=== PATIENT | male | born 1960 | race Caucasian/White ===

== ENCOUNTER 2017-11-07 10:24 | Observation (INO) | payer OTHER, BC ==
[2017-10-13 11:41] VITALS: BMI 23.0
--- NOTE | 2017-10-13 12:14 | PAT Medication Instructions ---
Service Date Oct 13, 2017. Current Home Medication List Albuterol Hfa (Ventolin Hfa), 2-4 PUFFS INH Q6H PRN for Shortness of Breath Atenolol (Tenormin), 12.5 MG PO QAM Escitalopram (Lexapro), 10 MG PO QAM Fluticasone Prop/Salmeterol (Advair Diskus 250/50 60 Dose), 1 PUFF INH BID PRN for Shortness of Breath Ibuprofen (Motrin), 800 MG PO TID PRN for Pain Omeprazole (Prilosec), 40 MG PO QAM Tiotropium [place]-Olodaterol (Stiolto Respimat 2.5-2.5 Mcg/Act), 2 PUFFS INH DAILY Medication Instructions For Your Scheduled Surgery - Hold the following medications the morning of surgery: Ibuprofen (Motrin), 800 MG PO TID PRN for Pain (otherwise okay to continue per surgeon) - Take the following medications the morning of surgery with a sip of water OTHERWISE NOTHING TO EAT OR DRINK AFTER MIDNIGHT: Atenolol (Tenormin), 12.5 MG PO QAM Omeprazole (Prilosec), 40 MG PO QAM Escitalopram (Lexapro), 10 MG PO QAM Tiotropium [place]-Olodaterol (Stiolto Respimat 2.5-2.5 Mcg/Act), 2 PUFFS INH DAILY Albuterol Hfa (Ventolin Hfa), 2-4 PUFFS INH Q6H PRN for Shortness of Breath ( use if needed; BRING TO HOSPITAL) Fluticasone Prop/Salmeterol (Advair Diskus 250/50 60 Dose), 1 PUFF INH BID PRN for Shortness of Breath - Take the following medications as scheduled the night before surgery: Tiotropium [place]rey-Olodaterol (Stiolto Respimat 2.5-2.5 Mcg/Act), 2 PUFFS INH DAILY Albuterol Hfa (Ventolin Hfa), 2-4 PUFFS INH Q6H PRN for Shortness of Breath Fluticasone Prop/Salmeterol (Advair Diskus 250/50 60 Dose), 1 PUFF INH BID PRN for Shortness of Breath If you have any questions please call us at [phone] or [phone] or [phone]
[2017-10-13 13:35] LABS: BASO % 0.4 %; BASO ABS # 0.02 K/uL (0-0.2); EOS % 3.1 %; EOS ABS # 0.15 K/uL (0-0.5); HEMATOCRIT 44.2 % (42-52); HEMOGLOBIN 15.5 g/dL (14.0-18.0); IG# 0.01 K/uL (0.00-0.02); LYMPH % 28.9 %; MEAN CELL VOLUME 98.9 fL (80-100); MEAN CORPUSCULAR HEMOGLOBIN 34.7 pg (25-34); MEAN CORPUSCULAR HGB CONC 35.1 g/dl (32-36); MEAN PLATELET VOLUME 10.5 fL (7.4-10.4); MONO ABS # 0.34 K/uL (0.11-0.59); NEUT % 60.4 %; NEUT ABS # 2.92 K/uL (1.4-6.5); PLATELET COUNT 200 K/uL (130-400); RED CELL DISTRIBUTION WIDTH CV 13.4 % (11.5-14.5); RED CELL DISTRIBUTION WIDTH SD 48.2 fL (36.4-46.3); WHITE BLOOD COUNT 4.84 K/uL (4.8-10.8)
[2017-10-13 15:21] LABS: CALCIUM 9.4 mg/dl (8.5-10.1); CREATININE 0.83 mg/dl (0.60-1.40)
[~2017-11-07] VITALS: Ht 180.3 cm; Wt 73.7 kg
[2017-11-07] VITALS (11 sets, daily range): BP systolic 119–164; BP diastolic 65–84; PULSE 70–98; TEMP 36.5–37.3; O2SAT 94–99; Ht 180.3 cm; Wt 73.7 kg
[~2017-11-07 10:24] MED LIST: ADVIN25/60 INH; ATEN-173 PO; ATROPINE SULFATE 0.1 MG/ML 5ML SYR IV PRN; BACITRACIN 50000 UNIT VIAL ONE; CEFAZOLIN 1000MG IV PUSH 5 ML IV SCH; ESCI10TA17 PO; EpHEDrine SULFATE INJ 50 MG/ML AMP IV PRN; FENTANYL CITRATE INJ 50 MCG/1 ML 2 ML VIAL IV PRN; FENTANYL CITRATE INJ 50 MCG/1 ML 2 ML VIAL ONE; HYDROmorphone INJ 1 MG/ML SYR IV PRN; IBUP-1428 PO; LACTATED RINGER'S 1000ML 1,000 ML IV SCH; MIDAZOLAM HCL 1 MG/ML 2ML VIAL ONE; OMEP40CA41 PO; ONDANSETRON INJ 2 MG/ML 2 ML VIAL IV PRN; SODIUM CHLORIDE 0.9% PF 50 ML VIAL ONE; TIOT1AER INH; VNTHFA/IN INH
--- NOTE | 2017-11-07 11:44 | History & Physical Bridge Note ---
H&P Re-Evaluation Bridge Note: I have examined the patient, reviewed the History & Physical and in the interval since the performance of the History & Physical I have noted the following changes of clinical significance: No changes noted
--- NOTE | 2017-11-07 11:46 | History and Physical ---
History & Physical Date Nov 07, 2017. Chief Complaint Neck and arm pain History of Present Illness The patient is a 56 year old male with complaints of neck and arm pain Additional History Hepatic Disease: No Endocrine Disorder: No Kidney Disease: No Hypertension: Yes Heart Disease: No Bleeding Tendencies: No Infectious Diseases: No Allergies Coded Allergies: No Known Allergies (Verified , 11/07/17) Home Medications Scheduled Atenolol (Tenormin), 12.5 MG PO QAM Escitalopram (Lexapro), 10 MG PO QAM Omeprazole (Prilosec), 40 MG PO QAM Tiotropium [place]-Olodaterol (Stiolto Respimat 2.5-2.5 Mcg/Act), 2 PUFFS INH DAILY Scheduled PRN Albuterol Hfa (Ventolin Hfa), 2-4 PUFFS INH Q6H PRN for Shortness of Breath Fluticasone Prop/Salmeterol (Advair Diskus 250/50 60 Dose), 1 PUFF INH BID PRN for Shortness of Breath Ibuprofen (Motrin), 800 MG PO TID PRN for Pain Physical Examination Skin: warm/dry, no rash Eyes: normal inspection, EOMI, sclerae normal ENT: normal ENT inspection, pharynx normal Head: normocephalic, atraumatic Neck: supple, no adenopathy, trachea midline Respiratory/Chest: lungs clear, normal breath sounds, no respiratory distress Cardiovascular: regular rate, rhythm, no edema, no murmur Abdomen / GI: normal bowel sounds, non tender Back: normal inspection Extremities: normal inspection, normal range of motion Neurologic/Psych: no motor/sensory deficits, alert, normal reflexes, oriented x 3 Diagnosis Cervical spinal stenosis Plan of Treatment ACDF C3 4 C4 5, anterior cervical discectomy and fusion.
[2017-11-07] MEDS ORDERED: BACITRACIN 50000 UNIT VIAL ONE (12:09)
[2017-11-07] MEDS ORDERED: FENTANYL CITRATE INJ 50 MCG/1 ML 2 ML VIAL ONE ×4 (12:23→13:50)
[2017-11-07] MEDS ORDERED: HYDROmorphone INJ 2 MG/ML SYR/VIAL ONE ×3 (12:41→13:50)
[2017-11-07] MEDS ORDERED: LIDOCAINE HCL 2% 2 ML VIAL (20MG/ML) ONE (13:04)
[2017-11-07] MEDS ORDERED: PROPOFOL IV EMULSION 10 MG/ML 20 ML VIAL IV ONE (13:04)
[2017-11-07] MEDS ORDERED: PHENYLEPHRINE 100MCG/ML 5ML SYR ONE ×2 (13:04→13:55)
[2017-11-07] MEDS ORDERED: ONDANSETRON INJ 2 MG/ML 2 ML VIAL ONE ×2 (13:04→13:55)
[2017-11-07] MEDS ORDERED: DEXAMETHASONE SOD INJ 4 MG/ML VIAL ONE (13:04)
[2017-11-07] MEDS ORDERED: FLOSEAL HEMOSTATIC MATRIX 5ML TOP ONE (13:30)
--- NOTE | 2017-11-07 13:31 | [facility] Operative Report ---
Operative Report Operative Date Nov 07, 2017. Pre-Operative Diagnosis Cervical spinal stenosis Post-Operative Diagnosis Same as preoperative diagnosis Procedure(s) Performed #1 anterior cervical discectomy by foraminotomies C3 4 C4 5. #2 anterior cervical arthrodesis C3 4 C4 5. #3 placement of cortical allograft filled with DBM 8 mm in height C3 4 C4 5. #4 application of 5 complete and screws C3 [address] Gerhard Willis Commercial Real Estate Attorney Surgeon(s) Emerald Hunt PA-C Estimated Blood Loss 50mL Findings Severe spinal stenosis Specimens None, Per Surgeon Description of Procedure Patient was met with him preoperatively case discussed all questions addressed. After informed consent obtained patient was taken to operative suite intubation places supine position. With a [place] headholder. All bony prominences were well padded as inspected to ensure no external pressure placed upon them. This point the anterior cervical spine was prepped and draped in the normal sterile fashion. With the assistance of fluoroscopy identified the C4 vertebral body. A transverse incision was placed along the right anterior aspect of the cervical spine overlying this region. Sharp dissection with the assistance of bipolar electrocautery was performed onto exposing the anterior cervical spine from C3 to C5. Self retaining retractor was placed. Then performed a complete discectomy of C3 4 out to the uncovertebral joints bilaterally and removed all posterior inner fibrous longitudinal ligament and performed bilateral foraminal release. [place] distracting pins were utilized to assist us to visualization. End plate November to subcortical bleeding bone in the millimeter cortical autograft. DBM tapped in position. Distracting apparatus was removed and proceeded to C4 5. And complete discectomy performed up to the uncovertebral joints bilaterally. Removed all posterior inner fibrous longitudinal ligament and bilateral from was performed. Please produce a cortical bleeding bone. A 8 mm cortical autograft with DBM was then tapped in position. All distracting apparatus was removed and a follow-up screw was applied with the assistance of fluoroscopy. Incision was then copiously irrigated and explored to ensure there is no damage to surrounding structures and any bleeding. 10 round TAYLER drain inserted. Incision closed with 1 Vicryl in the fascia for Monocryl for final skin closure Steri-Strips tenderness dressings placed. She will continue stable condition. Please note Emerald Bowles was present throughout the entire procedure involved in patient positioning complex portions of the surgery for closure. I attest to the content of the Intraoperative Record and any orders documented therein. Any exceptions are noted below.
--- NOTE | 2017-11-07 13:41 | DIAGNOSTIC IMAGING REPORT ---
INTRAOPERATIVE RADIOGRAPHS CLINICAL HISTORY: C3-C5 spinal fusion. Fluoroscopy time: 11 seconds. FINDINGS: 2 spot fluoroscopic views of the cervical spine are presented. An endotracheal tube is in place. There is evidence of discectomy at C3-C4 and C4-C5 with anterior fusion at these levels. The orthopedic hardware appears intact. Anterior fusion hardware is also noted in the lower cervical spine. IMPRESSION: Intraoperative images from C3 -C5 spinal fusion as above. Electronically signed by: Rashid Pierson M.D. 11/07/2017 1:40 PM Dictated Date/Time: 11/07/2017 1:39 PM
--- NOTE | 2017-11-07 13:41 | DIAGNOSTIC IMAGING REPORT ---
INTRAOPERATIVE RADIOGRAPHS CLINICAL HISTORY: C3-C5 spinal fusion. Fluoroscopy time: 11 seconds. FINDINGS: 2 spot fluoroscopic views of the cervical spine are presented. An endotracheal tube is in place. There is evidence of discectomy at C3-C4 and C4-C5 with anterior fusion at these levels. The orthopedic hardware appears intact. Anterior fusion hardware is also noted in the lower cervical spine. IMPRESSION: Intraoperative images from C3 -C5 spinal fusion as above. Electronically signed by: aRshid Pierson M.D. 11/07/2017 1:40 PM Dictated Date/Time: 11/07/2017 1:39 PM
[2017-11-07] MEDS ORDERED: MEPERIDINE HCL 25 MG/ML CARP ONE (13:42)
[2017-11-07] MEDS ORDERED: DO NOT ADMINISTER PNEUMOCOCCAL VACCINE PRN (13:45)
[2017-11-07] MEDS ORDERED: LORAZEPAM 0.5 MG TAB PO PRN (13:45)
[2017-11-07] MEDS ORDERED: HYDROmorphone INJ 0.5 MG/0.5 ML SYR IV PRN (13:45)
[2017-11-07] MEDS ORDERED: DEXAMETHASONE INJ 8 MG in SYRINGE 0 ML IV PRN (13:45)
[2017-11-07] MEDS ORDERED: ONDANSETRON INJ 2 MG/ML 2 ML VIAL IV PRN (13:45)
[2017-11-07] MEDS ORDERED: DO NOT ADMINISTER FLU VACCINE PRN (13:45)
[2017-11-07] MEDS ORDERED: DiphenhydrAMINE HCL 50 MG/ML VIAL IV PRN (13:45)
[2017-11-07] MEDS ORDERED: NALOXONE HCL 0.4 MG/1 ML VIAL/CARP IV PRN (13:45)
[2017-11-07] MEDS ORDERED: MAGNESIUM HYDROXIDE SUSP 30 ML UDC PO PRN (13:45)
[2017-11-07] MEDS ORDERED: LORAZEPAM INJ 0.5 MG in SYRINGE 0.75 ML IV PRN (13:45)
[2017-11-07] MEDS ORDERED: RACEPINEPHRINE 2.25% NEBU SOLN 0.5 ML VIAL INH PRN (13:45)
[2017-11-07] MEDS ORDERED: ACETAMINOPHEN IV 1,000 MG in EMPTY BAG 0 ML IV PRN (13:45)
[2017-11-07] MEDS ORDERED: GLYCOPYRROLATE INJ 0.2 MG/ML VIAL ONE (13:55)
[2017-11-07] MEDS ORDERED: NEOSTIGMINE METHYLSULFATE 1 MG/ML 10ML VIAL ONE (13:55)
[2017-11-07] MEDS ORDERED: ESMOLOL HCL 10 MG/ML 10 ML VIAL ONE (13:55)
--- NOTE | 2017-11-07 14:40 | Anesthesiology Progress Note ---
Anesthesia Post Op Note Date & Time Nov 07, 2017 at 14:40 Vital Signs Pain Intensity: 5.0 Vital Signs Past 12 Hours Date Time Temp Pulse Resp B/P (MAP) Pulse Ox O2 Delivery O2 Flow Rate FiO2 11/07/17 14:25 83 14 146/86 93 Nasal Cannula 4 11/07/17 14:15 93 15 131/89 93 Nasal Cannula 4 11/07/17 14:05 92 14 146/86 94 Oxymask 10 11/07/17 13:55 92 18 133/87 95 Oxymask 10 11/07/17 13:45 36.4 94 17 121/78 92 Oxymask 10 11/07/17 10:42 37.3 70 16 164/75 99 Room Air Notes Mental Status: alert / awake / arousable, participated in evaluation Pt Amnestic to Procedure: Yes Nausea / Vomiting: adequately controlled Pain: adequately controlled, improving with treatment Airway Patency, RR, SpO2: stable & adequate BP & HR: stable & adequate Hydration State: stable & adequate Anesthetic Complications: no major complications apparent
[2017-11-07] MEDS: HYDROmorphone INJ 1 MG/ML SYR IV PRN ×2 (15:58→19:08)
[2017-11-07] MEDS ORDERED: IV FLUIDS COMPLETED PRN (16:00)
[2017-11-07] MEDS ORDERED: SCOPOLAMINE 1.5 MG TDSY TD SCH (16:00)
[2017-11-07] MEDS: LACTATED RINGER'S 1000ML 1,000 ML IV SCH (16:05)
[2017-11-07] MEDS: CHECK SCOPOLAMINE PATCH PLACEMENT SCH (16:08)
[2017-11-07] MEDS ORDERED: RXC5 PO (16:45)
--- NOTE | 2017-11-07 16:46 | Discharge Instructions ---
Discharge Instructions Date of Service Nov 07, 2017. Admission Reason for Admission: Cervical Spinal Stenosis Discharge Discharge Diagnosis / Problem: cervical stenosis Discharge Goals Goal(s): Improve function Activity Recommendations Activity Limitations: per Instructions/Follow-up section . Instructions / Follow-Up Instructions / Follow-Up ACTIVITY RECOMMENDATIONS: SELF CARE INSTRUCTIONS AFTER CERVICAL FUSIONS 1. No smoking. Smoking drastically decreases the chance of a solid fusion. 2. No bending, lifting more than 5 pounds, or twisting (roll like a log when turning in bed). 3. You may shower 3 days after surgery. Thoroughly dry wound. Do not soak in the tub. 4. Cervical collar: Must be worn at all times including sleeping. You may remove the brace only to bath, eat and if you are sitting in a recliner. 5. Please walk as much as you can for exercise. Gradually increase the distance that you walk as your endurance increases. SPECIAL CARE INSTRUCTIONS: VERY IMPORTANT TO READ AND REVIEW A. Do not take any anti-inflammatory medications (i.e. Indocin, Advil, Aspirin, Naprosyn, Aleve, Motrin, etc.) as these may inhibit the chance of a solid fusion. Tylenol is okay to take. B. Your surgical incision has been closed with a cosmetic suture under the skin that will dissolve in about 6 weeks. In 14 days, you can use a pair of clean scissors and cut the suture that is left outside of the skin at the ends of your incision. C. Complications are uncommon, but please contact us if you have any signs or symptoms of: 1. wound infection (fever higher than 102.5 degrees F, redness, separation of wound, drainage, or increasing pain from the incision) 2. blood clots in legs (pain, swelling, redness and warmth in legs) 3. urinary tract infection (fever higher than 102.5 degrees, burning upon urination or increased frequency of urination) 4. nerve problems (inability to walk on your toes or heels, numbness, loss of bowel or bladder control) 5. any other symptoms that concern you. D. Please call the office at if you have any concerns or questions about your operation or recovery. MANAGING PAIN AFTER SPINAL SURGERY 1. Narcotic medication is intended for short-term use and will be provided for surgical pain. Surgical pain usually lasts for a period of 4-6 weeks. Narcotic medication includes Percocet, Vicodin, Darvocet, Tylenol #3 or Lortab. 2. Longer-term pain is more appropriately treated with non-narcotic medication such as Tylenol ES. 3. Muscle spasm is not appropriately treated with narcotics. Muscle relaxers such as Soma, Flexeril or Skelaxin can be used along with Tylenol ES. 4. Remember that we all live with some "aches and pains". This is not unusual or uncommon after an injury or as we get older. 5. We will provide appropriate medication within the normal guidelines of their prescribed use. We will also be very cautious and aware of potential abuse and extended duration of patients' medication needs. 6. Please allow 2-3 days to process refills. Prescriptions will not be mailed but must be picked up at the office. FOLLOW UP VISIT: Keep your scheduled follow-up appointment. Any questions, please call the office at . Current Hospital Diet Patient's current hospital diet: Clear Liquid Diet Discharge Diet Recommended Diet: Regular Diet Procedures Procedures Performed: #1 anterior cervical discectomy by foraminotomies C3 4 C4 5. #2 anterior cervical arthrodesis C3 4 C4 5. #3 placement of cortical allograft filled with DBM 8 mm in height C3 4 C4 5. #4 application of 5 complete and screws C3 4 C4 5. Pending Studies Studies pending at discharge: no Medical Emergencies . Who to Call and When: Medical Emergencies: If at any time you feel your situation is an emergency, please call 911 immediately. . Non-Emergent Contact Non-Emergency issues call your: Primary Care Provider . "Provider Documentation" section prepared by Gerhard Willis. . VTE Core Measure Inpt VTE Proph given/why not?: Eulogio Cavanaugh, SCD's
[2017-11-07] MEDS ORDERED: NURSING VERBAL MED ORDER ONE (19:00)
[2017-11-07] MEDS: NICOTINE 21 MG/24 HR TDSY EXT SCH (19:41)
[2017-11-07] MEDS: CEFAZOLIN IV 1,000 MG in SYRINGE 0 ML IV SCH (20:19)
[2017-11-07] MEDS: DOCUSATE SODIUM 100 MG CAP PO SCH (20:19)
[2017-11-08] VITALS (8 sets, daily range): BP systolic 140–151; BP diastolic 73–90; PULSE 65–82; TEMP 36.5–36.8; O2SAT 94–98
[2017-11-08] MEDS: CHECK SCOPOLAMINE PATCH PLACEMENT SCH ×2 (00:15→08:00)
[2017-11-08] MEDS: OXYCODONE HCL IR 5 MG TAB (IMMEDIATE RELEASE) PO PRN ×3 (00:34→11:37)
[2017-11-08] MEDS: LACTATED RINGER'S 1000ML 1,000 ML IV SCH (02:21)
[2017-11-08] MEDS: HYDROmorphone INJ 1 MG/ML SYR IV PRN ×3 (02:21→09:27)
[2017-11-08] MEDS: CEFAZOLIN IV 1,000 MG in SYRINGE 0 ML IV SCH ×2 (04:28→11:36)
--- NOTE | 2017-11-08 07:32 | Anesthesiology Progress Note ---
Anesthesia Post Op Note Date & Time Nov 08, 2017 at 07:32 Vital Signs Pain Intensity: 7.0 Vital Signs Past 12 Hours Date Time Temp Pulse Resp B/P (MAP) Pulse Ox O2 Delivery O2 Flow Rate FiO2 11/08/17 06:15 36.8 65 16 143/84 94 Room Air 11/08/17 04:15 36.6 66 16 149/90 98 Nasal Cannula 2.0 Humidified Oxygen 11/08/17 03:26 70 16 94 Nasal Cannula 2.0 11/08/17 02:15 36.5 71 16 146/78 96 Nasal Cannula 2.0 Humidified Oxygen 11/08/17 00:15 36.5 71 16 140/73 94 Nasal Cannula 2.0 Humidified Oxygen 11/08/17 00:15 Nasal Cannula 2.0 Humidified Oxygen 11/07/17 23:07 83 16 96 Nasal Cannula 2.0 11/07/17 22:15 36.6 90 16 132/74 95 Nasal Cannula 2.0 Humidified Oxygen 11/07/17 20:29 86 16 96 Nasal Cannula 2.0 11/07/17 20:15 36.6 80 16 123/76 94 Nasal Cannula 2.0 Humidified Oxygen Notes Mental Status: alert / awake / arousable, participated in evaluation Pt Amnestic to Procedure: Yes Nausea / Vomiting: adequately controlled Pain: adequately controlled Airway Patency, RR, SpO2: stable & adequate BP & HR: stable & adequate Hydration State: stable & adequate Anesthetic Complications: no major complications apparent
[2017-11-08] MEDS: NICOTINE 21 MG/24 HR TDSY EXT SCH (09:29)
[2017-11-08] MEDS: DOCUSATE SODIUM 100 MG CAP PO SCH (09:29)
--- NOTE | 2017-11-08 12:45 | Discharge Summary ---
Orthopedic Discharge Summary Admission Date/Reason Nov 07, 2017 at 11:42 Cervical Spinal Stenosis. Discharge Date/Disposition Nov 08, 2017 Home Diagnosis Principal Diagnosis: Cervical spinal stenosis Admission Physical Exam As per Admitting History & Physical. Hospital Course Patient underwent anterior cervical discectomy and fusion tolerated this well as taken to the orthopedic floor postop. Postop day #10 swallowing well. No hoarseness. Arm symptoms improved. Surgical he was discharged home. Discharge orders and instructions finally chart for further review. Discharge Instructions Please refer to the electronic Patient Visit Report (Discharge Instructions) for additional information.
[2017-11-09] MEDS ORDERED: BISACODYL 10 MG SUPP PR PRN (06:00)
[2017-11-09] MEDS ORDERED: BISACODYL 5 MG TABEC PO PRN (06:00)
[2017-11-10] MEDS ORDERED: POLYETHYLENE (MIRALAX) 17 GM PACK PO SCH (09:00)
== END 2017-11-08 12:00 | disposition home or self-care (01) ==
LOC: C.ACU 10:24 → C.3E 11:42 → MERGE 11:45 → ENRESERV 14:38
PROVIDERS: ADMIT Orthopaedic Surgery Orthopaedic Surgery of the Spine; ATTEND Orthopaedic Surgery Orthopaedic Surgery of the Spine
DX: M48.02 Spinal stenosis, cervical region (principal); J44.9 Chronic obstructive pulmonary disease, unspecified; F17.200 Nicotine dependence, unspecified, uncomplicated; I25.10 Atherosclerotic heart disease of native coronary artery without angina pectoris; I10 Essential (primary) hypertension

== ENCOUNTER 2019-01-04 10:22 | Inpatient (IN) ==
--- NOTE | 2019-01-03 09:18 | Anesthesiology Consultation ---
Date of Service January 03, 2019 Assessment & Plan (1) Encounter for pre-operative examination: Chart Review Chart Review: Acceptable Risk for Surgery and Patient NOT seen in Pre Admission Testing Consults Requested none History Surgery Operation Date: 01/04/19 12:10 Proposed Procedures p Robotic Left Video Assisted Thoracoscopy with Left Upper Lobectomy and Mediastinal Lymphadenectomy - Luis Antonio Adrian MD, FACS Height/Weight Height: 5 ft 10.5 in Weight: 72.575 kg Allergies Allergy/AdvReac Type Severity Reaction Status Date / Time No Known Allergies Allergy Verified 01/03/19 07:26 Medications Home Medications Medication Instructions Recorded Confirmed Last Taken albuterol sulfate 1 puff INHALATION Q6H PRN 01/03/19 01/03/19 Unknown escitalopram oxalate [Lexapro] 10 mg PO QAM 01/03/19 01/03/19 Unknown metoprolol succinate 12.5 mg PO QAM 01/03/19 01/03/19 Unknown tiotropium-olodaterol [Stiolto 2 puff INHALATION QAM 01/03/19 01/03/19 Unknown Respimat] Past Medical History Medical History Anxiety Cancer LUNG CANCER CURRENTLY Chronic neck pain LIMITED TO THE LEFT SIDE, OTHERWISE FULL ROM. Chronic obstructive pulmonary disease GERD (gastroesophageal reflux disease) H/O GI bleed H/O BLEEDING ULCER (2009) Hepatitis C 1999 WITH TREATMENT. Hypertension Peptic ulcer disease Pneumonia 10/22/2018 Past Surgical History Surgical History Fusion of spine C5-C6 (1984 R/T FRACTURE) C2-C3 (2014 [facility]) C3-C4 & C6-C7 (10/2017 [facility]). History of cardiac cath 2015 @ [facility]. FOLLOWS WITH DR. WILSON History of colonoscopy History of esophagogastroduodenoscopy (EGD) History of tonsillectomy S/P shoulder surgery RIGHT SHOULDER RECONSTRUCTION. 01/2018. DONE AT [facility]. Social History Smoking Status: Current every day smoker tobacco type: cigarettes Smoking cigarettes per day: 10 CIGS CURRENTLY -- 1 PPD X 40 YEARS Do You Dip or Chew Tobacco: No Hx Alcohol Use: Yes Alcohol type: beer alcohol intake frequency: a few times a week Hx Substance Use: No substance use type: marijuana Exercise / Class Metabolic Activity II 4-5 Yardwork/Stairs/Walk up hill Testing Electrocardiogram Date: 01/02/19 Findings: + SB @ (59 bpm) left anterior fascicular block Chest X-Ray Date: 12/14/18 Findings: + NAD Laboratory Results Laboratory Tests 10/13/17 10/13/17 12:16 12:16 WBC 4.84 Hgb 15.5 Plt Count 200 Sodium 138 Potassium 4.0 Chloride 106 Carbon Dioxide 23 BUN 8 Creatinine 0.83
[~2019-01-04 10:22] MED LIST changes: -ADVIN25/60 INH; -ATEN-173 PO; -ATROPINE SULFATE 0.1 MG/ML 5ML SYR IV PRN; -BACITRACIN 50000 UNIT VIAL ONE; -CEFAZOLIN 1000MG IV PUSH 5 ML IV SCH; +DEXAMETHASONE SOD INJ 4 MG/ML VIAL ONE; -ESCI10TA17 PO; -EpHEDrine SULFATE INJ 50 MG/ML AMP IV PRN; -FENTANYL CITRATE INJ 50 MCG/1 ML 2 ML VIAL IV PRN; -FENTANYL CITRATE INJ 50 MCG/1 ML 2 ML VIAL ONE; +GLYCOPYRROLATE 0.2 MG/ML VIAL ONE; -HYDROmorphone INJ 1 MG/ML SYR IV PRN; +HYDROmorphone INJ 2 MG/ML SYR/VIAL ONE; +HydrALAZINE HCL 20 MG/ML VIAL ONE; -IBUP-1428 PO; +LABETALOL HCL IV 5 MG/ML 20ML IV ONE; -LACTATED RINGER'S 1000ML 1,000 ML IV SCH; +LIDOCAINE HCL 2% 2 ML VIAL/AMP(20MG/ML) INFIL ONE; +LR 15ML/HR IV SCH; +NEOSTIGMINE METHYLSULFATE 5 MG/5 ML SYR ONE; -OMEP40CA41 PO; -ONDANSETRON INJ 2 MG/ML 2 ML VIAL IV PRN; +ONDANSETRON INJ 2 MG/ML 2 ML VIAL ONE; +PHENYLEPHRINE 100MCG/ML 5ML SYR ONE; +PROMETHAZINE HCL INJ 25 MG/ML 1 ML VIAL ONE; +PROPOFOL IV EMULSION 10 MG/ML 20 ML VIAL IV ONE; +ROCURONIUM BROMIDE 10 MG/ML 5 ML VIAL ONE; -SODIUM CHLORIDE 0.9% PF 50 ML VIAL ONE; -TIOT1AER INH; -VNTHFA/IN INH; +ePHEDrine sulfate 50 MG/ML SYR ONE; +fentaNYL citrate 100 MCG/2 ML VIAL ONE
[2019-01-04] MEDS ORDERED: ONDANSETRON INJ 2 MG/ML 2 ML VIAL IV PRN ×2 (11:56→19:16)
[2019-01-04] MEDS ORDERED: ATROPINE SULFATE 0.1 MG/ML 10ML SYR IV PRN (11:56)
[2019-01-04] MEDS ORDERED: ePHEDrine sulfate 50 MG/ML AMP IV PRN (11:56)
[2019-01-04] MEDS ORDERED: CEFAZOLIN 2000MG 2,000 MG/15 ML SYR IV ONE (12:49)
--- NOTE | 2019-01-04 12:49 | History & Physical Bridge Note ---
Date of Service January 04, 2019 History & Physical Bridge Note I have examined the patient, reviewed the History & Physical and in the interval since the performance of the History & Physical I have noted the following changes of clinical significance: no changes noted
[2019-01-04] MEDS ORDERED: CEFAZOLIN 2,000 MG/15 ML IV PUSH IV ONE (12:52)
[2019-01-04] MEDS ORDERED: BUPIVACAINE 0.5 % 5 MG/1 ML MPF 30ML VIAL ONE (12:58)
[2019-01-04] MEDS ORDERED: SODIUM CHLORIDE 0.9% PF 50 ML VIAL ONE (12:58)
[2019-01-04] MEDS ORDERED: BUPIVACAINE LIPOSOME 1.3% 266 MG/20 ML VIAL ONE (12:59)
[2019-01-04] MEDS ORDERED: ePHEDrine sulfate 50 MG/ML SYR ONE (13:54)
[2019-01-04] MEDS ORDERED: PHENYLEPHRINE 100MCG/ML 5ML SYR ONE (13:54)
[2019-01-04] MEDS ORDERED: fentaNYL citrate 100 MCG/2 ML VIAL ONE ×2 (14:04→17:13)
[2019-01-04] MEDS ORDERED: TISSEEL FIBRIN SEALANT 10ML TOP ONE (16:26)
--- NOTE | 2019-01-04 16:39 | Post Operative Brief Note ---
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
[2019-01-04] MEDS ORDERED: METOCLOPRAMIDE HCL INJ 5 MG/ML 2 ML VIAL IV ONE (17:00)
[2019-01-04] MEDS: fentaNYL citrate 100 MCG/2 ML VIAL IV PRN ×3 (17:16→17:28)
--- NOTE | 2019-01-04 17:21 | XRay Report ---
XR chest 1V portable CLINICAL HISTORY: [facility] postoperative COMPARISON STUDY: None FINDINGS: Operative changes consistent with a left upper lobe resection. Left-sided chest tube is in good position. Potential very small left apical pneumothorax. Trace amount of subcutaneous emphysema overlying the left hemithorax. Right lung is grossly clear. IMPRESSION: Unremarkable postoperative chest series. Minimal left apical pneumothorax. Left chest tu be in good position. The above report was generated using voice recognition software. It may contain grammatical, syntax or spelling errors. Electronically signed by: Sedrick Hood M.D. 01/04/2019 5:19 PM
[2019-01-04] MEDS: HYDROmorphone INJ 2 MG/ML SYR/VIAL IV PRN ×7 (17:38→18:31)
[2019-01-04] MEDS ORDERED: HYDROmorphone INJ 0.5 MG/0.5 ML SYR IV PRN (18:19)
--- NOTE | 2019-01-04 18:19 | Anesthesiology Progress Note ---
Date of Service January 04, 2019 Anesthesia Post Procedure Vital Signs Vital Signs: Temp Pulse Pulse Pulse Resp BP BP 01/04/19 18:03 36.7 C 81 22 163/92 H 01/04/19 17:50 36.8 C 77 21 175/95 H 01/04/19 17:40 77 21 175/95 H 01/04/19 17:37 73 16 01/04/19 17:35 73 16 172/93 H 01/04/19 17:34 72 16 161/93 H 01/04/19 17:30 81 23 01/04/19 17:25 79 19 165/99 H 01/04/19 17:21 83 20 152/82 H 01/04/19 17:20 74 23 01/04/19 17:16 77 20 01/04/19 17:15 77 17 142/78 H 01/04/19 17:12 36.8 C 90 18 154/89 H 01/04/19 17:10 106 H 15 01/04/19 17:07 87 24 01/04/19 17:05 96 H 17 156/89 H 01/04/19 17:04 01/04/19 11:24 36.8 C 60 20 141/86 H Pulse Ox 01/04/19 18:03 98 01/04/19 17:50 100 01/04/19 17:40 100 01/04/19 17:37 96 01/04/19 17:35 97 01/04/19 17:34 98 01/04/19 17:30 100 01/04/19 17:25 100 01/04/19 17:21 100 01/04/19 17:20 100 01/04/19 17:16 100 01/04/19 17:15 100 01/04/19 17:12 99 01/04/19 17:10 100 01/04/19 17:07 99 01/04/19 17:05 97 01/04/19 17:04 97 01/04/19 11:24 96 Pain Intensity Left Chest: Pain Intensity: 9 Notes Mental Status: alert / awake / arousable Patient Amnestic to Procedure: Yes Nausea / Vomiting: adequately controlled Pain: adequately controlled Airway Patency, RR, SpO2: stable & adequate BP & HR: stable & adequate Hydration State: stable & adequate Anesthetic Complications: no major complications apparent
[2019-01-04] MEDS ORDERED: OXYCODONE HCL IR 5 MG TAB (IMMEDIATE RELEASE) PO PRN (19:16)
[2019-01-04] MEDS ORDERED: ALBUTEROL HFA 8 GM INHALER INH PRN (19:16)
[2019-01-04] MEDS: MoRPHine SULFATE 2 MG/ML CARP IV PRN (19:33)
[2019-01-04] MEDS: D5W AND 1/2NSS 1,000 ML IV SCH (19:39)
[2019-01-04] MEDS: KETOROLAC 30 MG/ML VIAL IV PRN (19:53)
[2019-01-04 20:26] LABS: Hematocrit (blood only) 42.5 % (42-52); Hemoglobin 14.6 g/dL (14.0-18.0); Mean Corpuscular Hgb Conc 34.4 g/dL (32-36); Mean Corpuscular Volume 99.1 fL (80-100); Mean Platelet Volume 9.8 fL (7.4-10.4); Platelet Count 162 K/uL (130-400); RDW Standard Deviation 50.6 fL (36.4-46.3); Red Blood Count 4.29 M/uL (4.7-6.1); White Blood Count 11.47 K/uL (4.8-10.8)
[2019-01-04 20:43] LABS: Creatinine Clr Calc Pharmacy 111.6 ml/min; Est GFR (Non-African American) 101.8
[2019-01-04 20:55] LABS: INR 0.9 (0.9-1.1); Prothrombin Time 9.7 Seconds (9.0-12.0)
[2019-01-04] MEDS: METOCLOPRAMIDE HCL INJ 5 MG/ML 2 ML VIAL IV SCH (20:58)
[2019-01-04] MEDS: ACETAMINOPHEN 1,000 MG/100 ML VIAL IV SCH (20:58)
[2019-01-04] MEDS: DOCUSATE SODIUM 100 MG CAP PO SCH (21:02)
[2019-01-05] MEDS: MoRPHine SULFATE 2 MG/ML CARP IV PRN ×6 (01:36→23:08)
--- NOTE | 2019-01-05 03:30 | Operative Report ---
DATE OF OPERATION: 01/04/2019 PREOPERATIVE DIAGNOSIS: Squamous cell carcinoma, left upper lobe. POSTOPERATIVE DIAGNOSIS: Squamous cell carcinoma, left upper lobe. PROCEDURE: Robot-assisted thoracoscopic left upper lobectomy with mediastinal lymphadenectomy. SURGEON: Luis Antonio Adrian MD CLERICAL SUPERVISOR: PEDRO Merida (Mr. Fontenot was present for the entire case and was at the patient's bedside while I was at the console). ANESTHESIA: General anesthesia and endotracheal intubation with double lumen tube. SPECIFICS OF PROCEDURE AND FINDINGS: This is a 58-year-old male with history of cigarette smoking who was found to have a non-small cell lung carcinoma diagnosed via needle biopsy in the left upper lobe. His metastatic workup was completed, did not appear that he has metastatic disease. He was ready for surgery and on 01/04/2019 underwent an uncomplicated robot-assisted thoracoscopic left upper lobectomy with mediastinal lymph node dissection. 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 We divided this. The patient tolerated well. negligible blood loss. DESCRIPTION OF PROCEDURE: The patient brought to operating room and laid in supine position. General anesthesia induced and endotracheal intubation was performed with a double lumen tube. This was positioned via bronchoscopy. The patient was then turned into the right lateral decubitus position. The left chest prepped, draped in usual sterile fashion. After appropriate antibiotics had been given, A timeout had been called and the patient was prepped and draped in usual sterile fashion. One lung ventilation ensued and a 5-mm thoracoscopic port was placed at approximately the midline and the eighth interspace. Upon placing the scope, we could see that we were in the pleural cavity. There were no adhesions. Carbon dioxide was insufflated. This port was changed to a 12 mm camera port. We then placed an 8 mm port anterior about 10 cm to this port. Another 8 mm port was placed about 10 cm posterior at the same interspace. A 5 mm port was placed closer to the spine. A 266 mg of Exparel were mixed with 200 mL of normal saline, and 30 mL of 0.25% Marcaine. This was injected to each of the ports before we made them. It should also be noted that we made an trust manager assistant's port just above the diaphragm anteriorly. This was a 15 mm port. The Exparel was injected to create an intercostal block from the second through the eleventh rib. We then docked the robot. We immediately started by opening up the posterior pleura and the lung from the posterior mediastinum. I biopsied a level VII node, really did not see a level IX as I took down the inferior pulmonary ligament. Continued upward and I dissected down along the trachea and I came upon the posterior aspect of the fissure and dissected out the artery here. There were large lymph nodes here. We removed a great deal of them. We essentially cleaned these off. In the level XI, level XII, there were multiple nodes. We continued upward. I dissected out the level V and level node as well as a level X anteriorly. We did free this up. We then came back to the fissure and developed the fissure and then we were able to fire a stapler posteriorly to complete the staple line. We then continued this bluntly up anteriorly and did fire a stapler to divide the anterior fissure. We had noted preoperatively the patient had a partial anomalous pulmonary return and we saw this quite nicely. We worked very diligently to get the phrenic nerve away from this area. After freeing this up, I then took the lingular branch and one of the more distal branches on the pulmonary artery going to the upper lobe. This freed up things quite nicely. We were able to separate the artery and we fired a stapler again to complete take down the apical anterior branch that was all of the arterial branches. Going anteriorly, we saw the lingual vein and was unclear to me due to the mediastinal fat whether this went into the atrium or the anomalous vein. I tied this off with a 3-0 silk tie due to its size and the clip. After dissecting this vein further, I could see that there were 2 large branches from the left upper lobe heading toward into this anomalous vein, which was connected to the innominate vein. This actually went very nicely and we ended up firing the stapler across this vein pretty high up avoiding the phrenic nerve. After we had taken this down, we took out some more lymph nodes in the hilum and freed up the bronchus quite nicely and fired a stapler across this. We then delivered this off the field in an Endobag, although we had to open the trust manager assistant port a bit to do this. Bleeding was well controlled with the use of Aquamantys. We also used to seal over the hilum. A 24-Belarusian chest tube was placed in the anterior port and directed towards the apex. We sutured them with heavy silk suture. The muscle layers and the larger incisions were closed with 0 Vicryl and then 4-0 Monocryl was used in running subcuticular fashion to approximate the wound edges. We had negligible air leak with negligible blood loss. He was extubated in the room and tolerated it well. I attest to the content of the Intraoperative Record and any orders documented therein. Any exception s are noted below.
[2019-01-05] MEDS: ACETAMINOPHEN 1,000 MG/100 ML VIAL IV SCH ×3 (04:08→19:35)
[2019-01-05] MEDS: METOCLOPRAMIDE HCL INJ 5 MG/ML 2 ML VIAL IV SCH ×2 (04:09→11:24)
[2019-01-05] MEDS: D5W AND 1/2NSS 1,000 ML IV SCH (04:25)
[2019-01-05 05:58] LABS: Basophils # (auto) 0.01 K/uL (0-0.2); Basophils % (auto) 0.1 %; Eosinophils # (auto) 0.03 K/uL (0-0.5); Eosinophils % (auto) 0.3 %; Hematocrit (blood only) 37.9 % (42-52); Hemoglobin 12.9 g/dL (14.0-18.0); Immature Granulocytes # (auto) 0.02 K/uL (0.00-0.02); Immature Granulocytes % (auto) 0.2 %; Lymphocytes # (auto) 1.36 K/uL (1.2-3.4); Mean Corpuscular Volume 98.7 fL (80-100); Mean Platelet Volume 10.2 fL (7.4-10.4); Monocytes # (auto) 0.74 K/uL (0.11-0.59); Monocytes % (auto) 8.1 %; Neutrophils # (auto) 6.92 K/uL (1.4-6.5); Neutrophils % (auto) 76.3 %; Platelet Count 142 K/uL (130-400); RDW Coefficient of Variation 14.1 % (11.5-14.5); RDW Standard Deviation 51.1 fL (36.4-46.3); Red Blood Count 3.84 M/uL (4.7-6.1); White Blood Count 9.08 K/uL (4.8-10.8)
[2019-01-05 06:16] LABS: BUN Creatinine Ratio 13.6 (10-20); Creatinine Clr Calc Pharmacy 111.6 ml/min; Est GFR (Non-African American) 101.8
--- NOTE | 2019-01-05 07:49 | XRay Report ---
SINGLE VIEW CHEST CLINICAL HISTORY: Status post left upper lobe resection. FINDINGS: An AP, portable, upright chest radiograph is compared to study dated 01/04/2019 and correlat ed with PET/CT dated 12/21/2018 The examination is degraded by portable technique and patient rotation. The heart is mildly enlarged. The pulmonary vasculature is noncongested. Emphysema and chronic inter stitial thickening are similar to previous. A chest tube at the left apex is unchanged. There is volu me loss in the left lung consistent with surgical resection. There is trace fluid left lung base. Sca rring/atelectasis is seen at the right lung base. There is trace left apical pneumothorax. The skelet al structures are osteopenic. The bony thorax is grossly intact. Fusion hardware is seen in the lower cervical spine. Subcutaneous emphysema is noted along the left chest wall. IMPRESSION: 1. Emphysema with postoperative change from left upper lobe resection. 2. A left apical chest tube is unchanged in position. There is a trace residual left apical pneumotho rax. 3. Pleural fluid is noted at the left lung base. Electronically signed by: Rashid Pierson M.D. 01/05/2019 7:48 AM
--- NOTE | 2019-01-05 08:14 | Anesthesiology Progress Note ---
Date of Service January 05, 2019 Anesthesia Post Procedure Vital Signs Vital Signs: Temp Pulse Pulse Pulse Resp BP BP 01/05/19 07:54 37 C 73 18 01/05/19 05:55 36.8 C 71 20 01/05/19 04:09 36.8 C 71 20 01/05/19 02:02 36.5 C 68 18 01/05/19 00:07 36.5 C 73 18 01/04/19 21:58 36.5 C 91 H 17 01/04/19 21:10 36.6 C 82 20 01/04/19 20:50 20 01/04/19 20:04 90 17 01/04/19 19:35 36.9 C 88 20 01/04/19 19:05 36.9 C 88 20 01/04/19 18:51 87 15 159/95 H 01/04/19 18:50 78 13 01/04/19 18:46 78 19 153/88 H 01/04/19 18:45 85 21 01/04/19 18:40 83 19 157/91 H 01/04/19 18:38 85 17 160/83 H 01/04/19 18:36 77 17 161/90 H 01/04/19 18:35 77 15 01/04/19 18:31 79 18 154/88 H 01/04/19 18:30 85 16 01/04/19 18:26 79 17 161/97 H 01/04/19 18:25 79 15 01/04/19 18:20 79 21 164/90 H 01/04/19 18:16 80 12 167/103 H 01/04/19 18:15 79 16 01/04/19 18:11 76 19 153/94 H 01/04/19 18:10 36.7 C 77 18 175/95 H 01/04/19 18:06 81 19 163/92 H 01/04/19 18:05 81 23 01/04/19 18:03 36.7 C 81 22 163/92 H 01/04/19 18:02 81 21 169/84 H 01/04/19 18:01 83 21 165/107 H 01/04/19 18:00 36.7 C 76 17 175/95 H 01/04/19 17:56 79 17 166/89 H 01/04/19 17:55 82 17 01/04/19 17:53 80 19 152/87 H 01/04/19 17:51 74 16 175/100 H 01/04/19 17:50 36.8 C 74 16 175/95 H 01/04/19 17:45 72 15 177/94 H 01/04/19 17:40 77 21 175/95 H 01/04/19 17:37 73 16 01/04/19 17:35 73 16 172/93 H 01/04/19 17:34 72 16 161/93 H 01/04/19 17:30 81 23 01/04/19 17:25 79 19 165/99 H 01/04/19 17:21 83 20 152/82 H 01/04/19 17:20 74 23 01/04/19 17:16 77 20 01/04/19 17:15 77 17 142/78 H 01/04/19 17:12 36.8 C 90 18 154/89 H 01/04/19 17:10 106 H 15 01/04/19 17:07 87 24 01/04/19 17:05 96 H 17 156/89 H 01/04/19 17:04 01/04/19 11:24 36.8 C 60 20 141/86 H BP Pulse Ox 01/05/19 07:54 140/80 94 01/05/19 05:55 126/71 94 01/05/19 04:09 126/75 94 01/05/19 02:02 103/58 L 95 01/05/19 00:07 104/66 93 01/04/19 21:58 97/54 L 93 01/04/19 21:10 109/70 92 01/04/19 20:50 91 01/04/19 20:04 130/79 96 01/04/19 19:35 156/90 H 97 01/04/19 19:05 143/88 H 93 01/04/19 18:51 97 01/04/19 18:50 96 01/04/19 18:46 95 01/04/19 18:45 96 01/04/19 18:40 97 01/04/19 18:38 99 01/04/19 18:36 98 01/04/19 18:35 98 01/04/19 18:31 98 01/04/19 18:30 98 01/04/19 18:26 98 01/04/19 18:25 98 01/04/19 18:20 97 01/04/19 18:16 95 01/04/19 18:15 96 01/04/19 18:11 97 01/04/19 18:10 98 01/04/19 18:06 98 01/04/19 18:05 98 01/04/19 18:03 98 01/04/19 18:02 98 01/04/19 18:01 98 01/04/19 18:00 98 01/04/19 17:56 98 01/04/19 17:55 99 01/04/19 17:53 100 01/04/19 17:51 100 01/04/19 17:50 100 01/04/19 17:45 100 01/04/19 17:40 100 01/04/19 17:37 96 01/04/19 17:35 97 01/04/19 17:34 98 01/04/19 17:30 100 01/04/19 17:25 100 01/04/19 17:21 100 01/04/19 17:20 100 01/04/19 17:16 100 01/04/19 17:15 100 01/04/19 17:12 99 01/04/19 17:10 100 01/04/19 17:07 99 01/04/19 17:05 97 01/04/19 17:04 97 01/04/19 11:24 96 Pain Intensity Left Chest: Pain Intensity: 8 Notes Mental Status: alert / awake / arousable and participated in evaluation Patient Amnestic to Procedure: Yes Nausea / Vomiting: adequately controlled Pain: adequately controlled Airway Patency, RR, SpO2: stable & adequate BP & HR: stable & adequate Hydration State: stable & adequate Anesthetic Complications: no major complications apparent and Pt Satisfied with anesthetic care
[2019-01-05] MEDS: DOCUSATE SODIUM 100 MG CAP PO SCH ×2 (09:20→21:00)
[2019-01-05] MEDS: ENOXAPARIN INJ 40 MG/0.4 ML SYR SQ SCH (09:20)
[2019-01-05] MEDS: ESCITALOPRAM OXALATE 10 MG TAB PO SCH (09:20)
[2019-01-05] MEDS: KETOROLAC 30 MG/ML VIAL IV PRN (09:21)
[2019-01-05] MEDS: METOPROLOL SUCC 25MG EXT REL TAB PO SCH (09:21)
[2019-01-05] MEDS: OXYCODONE HCL IR 5 MG TAB (IMMEDIATE RELEASE) PO PRN ×2 (13:16→19:36)
--- NOTE | 2019-01-05 16:16 | Progress Note ---
DATE: 01/05/2019 Mr. Doe was seen today. We are having trouble controlling his pain, but otherwise he looks great. His x-ray looks great. He has no air leak. He has very little drainage. His labs all look good. He sounds good on exam. I think we get his chest tube out, he will feel better. At this point, I have been quite pleased with how well he has done. The pathology of course is not back yet. Hopefully, we will take his tube out and let him go home in the morning.
[2019-01-06] MEDS: OXYCODONE HCL IR 5 MG TAB (IMMEDIATE RELEASE) PO PRN ×5 (00:03→21:24)
[2019-01-06] MEDS ORDERED: LORazepam 0.5 MG TAB PO STA (00:36)
[2019-01-06] MEDS: MoRPHine SULFATE 2 MG/ML CARP IV PRN ×10 (00:57→21:45)
[2019-01-06] MEDS: ACETAMINOPHEN 1,000 MG/100 ML VIAL IV SCH ×3 (03:09→19:47)
[2019-01-06] MEDS ORDERED: cloNIDine HCL 0.1 MG/24 HR TRANSDERM SYS TD SCH (06:00)
--- NOTE | 2019-01-06 07:56 | XRay Report ---
XR chest 1V portable HISTORY: Left upper lobectomy. Postop. COMPARISON: Chest 01/05/2019. FINDINGS: Tiny left apical pneumothorax persists. Left-sided chest tube is unchanged in position. Tra ce left pleural effusion and left basilar densities are again noted.] Linear densities favor subsegme ntal atelectasis. Cervical spinal fusion hardware. The patient is slightly rotated. The cardiac silho uette is stable in size. IMPRESSION: No change in the tiny left pneumothorax and left-sided chest tube. Electronically signed by: Luis Carlos Mercer M.D. 01/06/2019 7:54 AM
--- NOTE | 2019-01-06 08:55 | Progress Note ---
DATE: 01/06/2019 Mr. Stanford was evaluated today. We gave him some Ativan and he was able to sleep last night, but he had an extreme amount of pain today. I think some of this is neurogenic. I am going to start him on gabapentin today. Also, his blood pressure has been markedly high and I put him on a Catapres patch at 0.1. His chest tube put out about 350 mL total yesterday. He also has a small leak, which is intermittent, but I am afraid to pull the tube out right now. He has mildly decreased breath sounds on the left, but his x-ray looks quite good. He has expected volume loss but no infiltrates, no effusions and no pneumothorax. He is walking in the hallways. He is tolerating a diet. I inspected his chest tube sites and there is no twisting of the tube and it looks quite good. He is just having difficulty with the pain management, which I think will be better once we get the tube out which hopefully will be tomorrow. His pathology is still pending.
[2019-01-06] MEDS: ESCITALOPRAM OXALATE 10 MG TAB PO SCH (09:02)
[2019-01-06] MEDS: CHECK CLONIDINE PATCH PLACEMENT SCH ×3 (09:02→23:43)
[2019-01-06] MEDS: DOCUSATE SODIUM 100 MG CAP PO SCH ×2 (09:02→21:24)
[2019-01-06] MEDS: METOPROLOL SUCC 25MG EXT REL TAB PO SCH (09:03)
[2019-01-06] MEDS: ENOXAPARIN INJ 40 MG/0.4 ML SYR SQ SCH (09:04)
[2019-01-06] MEDS: LORazepam 0.5 MG TAB PO PRN (13:20)
[2019-01-06] MEDS: GABAPENTIN 300 MG CAP PO SCH ×2 (16:11→21:24)
[2019-01-07] MEDS: MoRPHine SULFATE 2 MG/ML CARP IV PRN ×9 (01:02→21:06)
[2019-01-07] MEDS: ACETAMINOPHEN 1,000 MG/100 ML VIAL IV SCH ×3 (04:52→19:50)
[2019-01-07 05:29] LABS: Hemoglobin 14.3 g/dL (14.0-18.0); Mean Corpuscular Volume 99.3 fL (80-100); Mean Platelet Volume 10.4 fL (7.4-10.4); Platelet Count 157 K/uL (130-400); RDW Coefficient of Variation 13.9 % (11.5-14.5); RDW Standard Deviation 50.2 fL (36.4-46.3); Red Blood Count 4.23 M/uL (4.7-6.1); White Blood Count 10.69 K/uL (4.8-10.8)
[2019-01-07 05:54] LABS: Creatinine Clr Calc Pharmacy 134.9 ml/min; Est GFR (African American) 127.6; Est GFR (Non-African American) 110.1
--- NOTE | 2019-01-07 07:02 | XRay Report ---
XR chest 1V portable CLINICAL HISTORY: lobectomy, left upper COMPARISON STUDY: Chest radiograph January 06, 2019. FINDINGS: Left chest tube is in place. A trace left pneumothorax is similar to prior exam. Left lower lung airspace opacity with volume loss has significantly increased. There is associated leftward med iastinal shift. Postoperative findings within the cervical spine are noted. Linear right lower opacit y favors atelectasis. There is pulmonary vascular congestion without overt pulmonary edema. IMPRESSION: 1. Significant increase in left lower lung airspace opacity with volume loss which favors increasing left lower lobe atelectasis. 2. Left apical chest tube in place. Trace left pneumothorax. Electronically signed by: Nikolay Savage M.D. 01/07/2019 7:01 AM
[2019-01-07] MEDS ORDERED: BISACODYL 10 MG SUPP PR PRN (08:13)
[2019-01-07] MEDS ORDERED: SOD PHOSPHATE/SOD BIPHOSPHATE ENEMA 132 ML BTL PR PRN (08:13)
--- NOTE | 2019-01-07 08:51 | XRay Report ---
XR chest 1V portable CLINICAL HISTORY: tube removal COMPARISON STUDY: Chest radiograph January 07, 2019 6:47 AM. FINDINGS: Left chest tube has been removed. Small apical pneumothorax has slightly increased in size. Extensive left lower lung opacity with volume loss is again noted. Postoperative findings within the cervical spine are noted. There is no right pneumothorax. IMPRESSION: 1. Interval left chest tube removal. Mild increase in size of a small left pneumothorax. 2. Persistent left lower lung airspace opacity with significant volume loss which suggests partial le ft lower lobe atelectasis. Electronically signed by: Nikolay Savage M.D. 01/07/2019 8:50 AM
[2019-01-07] MEDS ORDERED: PIPERACILL/TAZOBAC CONSULT ACTIVE PRN (09:00)
[2019-01-07] MEDS ORDERED: PIPERACILLIN/TAZOBACTAM 3.375 GM in DEXTROSE 5% 100 ML IV STA (09:04)
[2019-01-07] MEDS: METOPROLOL SUCC 25MG EXT REL TAB PO SCH (09:08)
[2019-01-07] MEDS: ESCITALOPRAM OXALATE 10 MG TAB PO SCH (09:08)
[2019-01-07] MEDS: DOCUSATE SODIUM 100 MG CAP PO SCH ×2 (09:08→21:06)
[2019-01-07] MEDS: ENOXAPARIN INJ 40 MG/0.4 ML SYR SQ SCH (09:09)
[2019-01-07] MEDS: GABAPENTIN 300 MG CAP PO SCH ×3 (09:09→21:06)
[2019-01-07] MEDS: CHECK CLONIDINE PATCH PLACEMENT SCH ×3 (09:11→23:56)
[2019-01-07] MEDS: POLYETHYLENE (MIRALAX) 17 GM PACK PO SCH (09:17)
[2019-01-07] MEDS: guaiFENesin 600 MG TABCR PO SCH ×2 (10:06→21:06)
[2019-01-07] MEDS: OXYCODONE HCL IR 5 MG TAB (IMMEDIATE RELEASE) PO PRN ×2 (10:11→16:17)
[2019-01-07] MEDS: STIOLTO INH SCH (12:36)
--- NOTE | 2019-01-07 12:50 | Surgery Progress Note ---
Date of Service January 07, 2019 Assessment & Plan (1) Lung cancer, lower lobe: -pt. is s/p LLL -chest tube removed today and post-pull CXR shows atelectasis of lower lobe of left lung -encouraged coughing, deep breathing, use of IS -will make NPO and repeat CXR in am and if atelectasis persists will perform FOB -place on zosyn lovenox for DT prevention Subjective Pt. denies SOB. He notes pain he believes is from chest tube. No difficulty voiding. He is ambulating in hallway and tolerating regular diet. Physical Exam Vital Signs (Past 24 Hours): Last Vital Signs Temp 36.4 C L 01/06/19 23:45 Pulse 65 01/06/19 23:45 Resp 14 01/06/19 23:45 BP 173/96 H 01/06/19 23:45 Pulse Ox 92 01/07/19 04:50 Constitutional: WD/WN, vitals as above Respiratory: normal respiratory effort; no respiratory distress and no labored breathing BS are markedly decreased at left base
[2019-01-07] MEDS: PIPERACILLIN/TAZOBACTAM 3.375 GM in DEXTROSE 5% 100 ML IV SCH ×2 (14:45→22:38)
[2019-01-07] MEDS: LORazepam 0.5 MG TAB PO PRN (21:06)
[2019-01-08] MEDS: ACETAMINOPHEN 1,000 MG/100 ML VIAL IV SCH ×3 (03:56→20:30)
[2019-01-08] MEDS: MoRPHine SULFATE 2 MG/ML CARP IV PRN ×7 (03:59→21:16)
[2019-01-08] MEDS: PIPERACILLIN/TAZOBACTAM 3.375 GM in DEXTROSE 5% 100 ML IV SCH ×3 (05:41→21:17)
--- NOTE | 2019-01-08 07:29 | XRay Report ---
XR chest 1V portable CLINICAL HISTORY: atelectasis COMPARISON STUDY: Chest radiograph January 07, 2019. FINDINGS: Small left apical pneumothorax has slightly decreased in size. Patient is status post left upper lobectomy. Extensive left lung opacification with volume loss has increased. There is no consol idation within the right lung. Postoperative findings within the cervical spine are noted. Leftward m ediastinal shift is noted due to left lung volume loss. IMPRESSION: 1. Increasing left lung opacification with volume loss which favors increasing left lower lobe atelec tasis. 2. Small left pneumothorax, slightly decreased in size. Electronically signed by: Nikolay Savage M.D. 01/08/2019 7:27 AM
[2019-01-08] MEDS: CHECK CLONIDINE PATCH PLACEMENT SCH ×2 (08:33→16:08)
[2019-01-08] MEDS: POLYETHYLENE (MIRALAX) 17 GM PACK PO SCH (08:34)
[2019-01-08] MEDS: DOCUSATE SODIUM 100 MG CAP PO SCH ×2 (08:34→21:16)
[2019-01-08] MEDS: guaiFENesin 600 MG TABCR PO SCH ×2 (08:35→21:16)
[2019-01-08] MEDS: ENOXAPARIN INJ 40 MG/0.4 ML SYR SQ SCH (08:35)
[2019-01-08] MEDS: ESCITALOPRAM OXALATE 10 MG TAB PO SCH (08:35)
[2019-01-08] MEDS: GABAPENTIN 300 MG CAP PO SCH ×3 (08:35→21:16)
[2019-01-08] MEDS: METOPROLOL SUCC 25MG EXT REL TAB PO SCH (08:36)
[2019-01-08] MEDS: STIOLTO INH SCH (08:38)
[2019-01-08] MEDS ORDERED: SODIUM CHLORIDE 0.9% 1000ML 1,000 ML IV SCH (08:45)
[2019-01-08] MEDS: OXYCODONE HCL IR 5 MG TAB (IMMEDIATE RELEASE) PO PRN (11:39)
[2019-01-08] MEDS ORDERED: fentaNYL citrate 100 MCG/2 ML VIAL ONE (18:48)
[2019-01-08] MEDS ORDERED: MIDAZOLAM HCL 1 MG/ML 2ML VIAL ONE (18:49)
--- NOTE | 2019-01-08 18:49 | History & Physical Bridge Note ---
Date of Service January 08, 2019 History & Physical Bridge Note I have examined the patient, reviewed the History & Physical and in the interval since the performance of the History & Physical I have noted the following changes of clinical significance: no changes noted
--- NOTE | 2019-01-08 18:51 | Pre Anesthesia Assessment ---
Date of Service January 08, 2019 Pre Sedation Assessment Vital Signs Temp Pulse Pulse Resp BP BP Pulse Ox 01/08/19 15:13 36.6 C 68 20 144/80 H 93 01/08/19 11:28 36.8 C 70 20 138/78 97 01/08/19 09:55 95 01/08/19 09:54 96 01/08/19 07:32 37 C 75 18 140/82 90 01/07/19 23:49 36.7 C 81 20 149/80 H 95 01/07/19 19:37 36.7 C 80 17 149/74 H 95 Pre-Sedation Airway Assessment Smoking Status: Current every day smoker Thyromental Distance: > or= 3.5 Finger Breadths Mallampati Class: II Notes The planned sedation has been discussed with the patient. Informed Consent was obtained. I have identified the patient, determined the appropriateness of sedation and have assessed the patient immediately prior to the procedure. All medicine(s) and interventions are by my order.
--- NOTE | 2019-01-08 19:12 | Procedure Note ---
Procedure Note: Bronchoscopy Procedure Therapeutic fiberoptic bronchoscopy for retained secretions post-lobectomy Supervising Physician Co-Signing Physician Notes Dr Adrian
--- NOTE | 2019-01-08 19:13 | Post Anesthesia Assessment ---
Date of Service January 08, 2019 Post Sedation Assessment Vital Signs Temp Pulse Pulse Pulse Resp BP BP 01/08/19 18:58 78 24 181/102 H 01/08/19 15:13 36.6 C 68 20 144/80 H 01/08/19 11:28 36.8 C 70 20 138/78 01/08/19 09:55 01/08/19 09:54 01/08/19 07:32 37 C 75 18 140/82 01/07/19 23:49 36.7 C 81 20 149/80 H 01/07/19 19:37 36.7 C 80 17 149/74 H Pulse Ox 01/08/19 18:58 99 01/08/19 15:13 93 01/08/19 11:28 97 01/08/19 09:55 95 01/08/19 09:54 96 01/08/19 07:32 90 01/07/19 23:49 95 01/07/19 19:37 95 Recovery Score Activity: Moves 4 extremities Respiration: Deep Breath/Cough Circulation: +/-20% PreAnes Value Consciousness: Fully Awake Oxygen Saturation: > 92% On Room Air Post Anesthesia Score: 10 Post Sedation Plan On clinical assessment, the patient appears to have tolerated the sedation without complications. Patient is recovering as anticipated. Patient will continue to be monitored by nursing and may be discharged when sedation discharge criteria are met per below protocol. Upon Completions of procedure and additional 15 minutes continue every 5 minute vital signs and the P.A.R. score; then discharge to a Phase I or Fast Track to Phase II per the following guidelines: * Discharge Patient to appropriate Phase II area if PAR is 8 or greater or return to pre- procedure baseline. The post - procedure orders will be as directed. * If PAR score is less than 8 or not return to pre-procedure baseline then patient will follow Phase I monitoring till PAR is reached for Phase II. The Phase I may be done in procedure room or may call to secure a Phase I area. * If naloxone or flumazenil are used for reversal, hold in Phase I for continued monitoring from when last reversal dose was given for a minimum of 60 minutes or longer pending the nurse and/or physician discretion of patient condition before discharge to Phase II. Please call the Sedation Physician to re-evaluate and complete post-note for discharge to Phase II area. Do NOT discharge from procedure sedation or Phase 1 until post- sedation evaluation note is complete by procedure /sedation MD Sedation Discharge Instructions to be given to the patient at discharge to home. Supervising Physician Co-Signing Physician Notes Dr Adrian
--- NOTE | 2019-01-08 19:27 | XRay Report ---
XR chest 1V portable CLINICAL HISTORY: s/p bronchoscopy postoperative COMPARISON STUDY: 01/08/2019 7:09 AM FINDINGS: Slight improvement in aeration left lung. Very small left apical pneumothorax with a maximu m pleural separation of 7 mm. Right lung remains clear. IMPRESSION: 1. Slight improvement in aeration left lung base. 2. Small left apical pneumothorax with a maximum pleural separation at 7 mm. The above report was generated using voice recognition software. It may contain grammatical, syntax or spelling errors. Electronically signed by: Sedrick Hood M.D. 01/08/2019 7:25 PM
--- NOTE | 2019-01-09 03:28 | Operative Report ---
DATE OF OPERATION: 01/08/2019 PREOPERATIVE DIAGNOSIS: Postoperative atelectasis with retained secretions. POSTOPERATIVE DIAGNOSIS: Postoperative atelectasis with retained secretions. PROCEDURE: Therapeutic fiberoptic bronchoscopy. SURGEON: Luis Antonio Adrian MD. ANESTHESIA: Sedation with local. INDICATION OF PROCEDURE: Justice Stanford is a 58-year-old male who underwent an uncomplicated left upper lobectomy for nonsmall cell lung carcinoma 4 days ago. He looked quite good. We thought we would get him discharged. However, he was noted to have atelectasis yesterday of portion of his left lower lobe. We pulled his chest tube in hopes with less pain and he would cough better. The patient has been walking in the hallway. He is on room air. He is looked quite good; however, today his x-ray had not changed. We kept him n.p.o. after midnight. On the evening of 01/08/2019, I brought the patient down to the ICU in room 5 and sedated him and performed a fiberoptic bronchoscopy. His cords move normally. He did have pretty thick secretions in both bronchial trees. His left upper lobe stump looked fine. His left lower lobe was suctioned clean and irrigated clear with one saline flush. His airways did not seem inflamed. I suctioned and dry. He tolerated it well. DESCRIPTION OF PROCEDURE: The patient received fentanyl and Versed. He is a former heroin addict and his opioid and benzodiazepine requirements are fairly high. We gave him a 75 of fentanyl and 4 of Versed and he was finally sedated enough for us to perform the bronchoscopy. After appropriate timeout had been called, the fiberoptic scope was placed through his right naris. The lidocaine jelly had been placed as well as lidocaine spray. He had a lidocaine nebulizer. Going down the cords it appeared to be moving normally. I injected lidocaine over these and they went through them. There was a light colored thick secretions which I suctioned out of the trachea. He coughed a great deal and a large amount of mucus was aspirated. I removed the scope and allowed him to cough and went back down and went into his right bronchial tree and suctioned out the right upper lobe which had very little and the right middle lobe had very little; right lower lobe bronchi did have some secretions which we suctioned dry and irrigated and this was irrigated clear. Then I went down into the left. The left upper lobe bronchial stump looked fine. I went down into the left lower lobe bronchus including superior segmental bronchus as well as the other airways and they all appeared to be widely patent. I irrigated this out and got very little in the way of sputum. I irrigated this clear with 130 mL injection saline. The rest of his airway looked quite good and I suctioned everything out quite dry as I removed the bronchoscope. He tolerated it quite well. I attest to the content of the Intraoperative Record and any orders documented therein. Any exception s are noted below.
[2019-01-09] MEDS: ACETAMINOPHEN 1,000 MG/100 ML VIAL IV SCH ×3 (03:30→20:52)
[2019-01-09] MEDS: MoRPHine SULFATE 2 MG/ML CARP IV PRN ×5 (03:54→20:56)
[2019-01-09] MEDS: PIPERACILLIN/TAZOBACTAM 3.375 GM in DEXTROSE 5% 100 ML IV SCH ×3 (05:29→21:17)
--- NOTE | 2019-01-09 07:08 | XRay Report ---
XR chest 1V portable HISTORY: 58 years-old Male atelectasis follow-up study in a patient with left pneumothorax COMPARISON: Chest radiograph 01/08/2019 TECHNIQUE: Portable AP view of the chest FINDINGS: Cardiomediastinal and hilar silhouettes are unchanged. Unchanged left apical pneumothorax, pleural se paration 9 mm, previously 8 mm. Persistent left hemidiaphragmatic elevation with left basilar opaciti es and blunting of left costophrenic angle. There is improved aeration about the left lung. Possible trace left pneumothorax. Minimal subsegmental atelectasis/scarring about the right lung base. Degener ative changes of the shoulders and spine. Fusion hardware of the lower cervical spine. IMPRESSION: 1. Improved aeration of the left lung with persistent left hemidiaphragmatic elevation and left basil ar opacities. 2. Unchanged size of the small left apical pneumothorax. The above report was generated using voice recognition software. It may contain grammatical, syntax o r spelling errors. Electronically signed by: Luis Garrett M.D. 01/09/2019 7:07 AM
[2019-01-09 08:10] LABS: Creatinine Clr Calc Pharmacy 108.7 ml/min; Est GFR (African American) 116.8; Est GFR (Non-African American) 100.7
[2019-01-09] MEDS: GABAPENTIN 300 MG CAP PO SCH ×3 (09:02→21:00)
[2019-01-09] MEDS: guaiFENesin 600 MG TABCR PO SCH ×2 (09:02→21:00)
[2019-01-09] MEDS: METOPROLOL SUCC 25MG EXT REL TAB PO SCH (09:02)
[2019-01-09] MEDS: DOCUSATE SODIUM 100 MG CAP PO SCH ×2 (09:02→21:00)
[2019-01-09] MEDS: ESCITALOPRAM OXALATE 10 MG TAB PO SCH (09:02)
[2019-01-09] MEDS: CHECK CLONIDINE PATCH PLACEMENT SCH ×3 (09:03→15:22)
[2019-01-09] MEDS: ENOXAPARIN INJ 40 MG/0.4 ML SYR SQ SCH (09:03)
[2019-01-09] MEDS: POLYETHYLENE (MIRALAX) 17 GM PACK PO SCH (09:04)
[2019-01-09] MEDS: STIOLTO INH SCH (09:04)
[2019-01-09] MEDS: OXYCODONE HCL IR 5 MG TAB (IMMEDIATE RELEASE) PO PRN ×2 (14:19→18:53)
--- NOTE | 2019-01-09 20:00 | Progress Note ---
DATE: 01/09/2019 Mr. Doe is now 5 days status post a lobectomy. I have been quite concerned about him because of his atelectasis of the lower lobe and I performed a bronchoscopy late yesterday afternoon. He is much improved. I am happy to report that he has a stage I adenocarcinoma. Fifteen lymph nodes were negative for carcinoma. His x-ray is much better, however, I am going to keep him on antibiotics and keep him for 1 more day and if things look good tomorrow, we will switch him over to p.o. antibiotics and send him home. I am much happier about him.
[2019-01-09 23:38] VITALS: PULSE 70
[2019-01-10] MEDS: CHECK CLONIDINE PATCH PLACEMENT SCH ×2 (00:06→09:15)
[2019-01-10] MEDS: MoRPHine SULFATE 2 MG/ML CARP IV PRN ×2 (00:46→04:41)
[2019-01-10] MEDS: ACETAMINOPHEN 1,000 MG/100 ML VIAL IV SCH (04:38)
[2019-01-10] MEDS: PIPERACILLIN/TAZOBACTAM 3.375 GM in DEXTROSE 5% 100 ML IV SCH (04:59)
[2019-01-10] MEDS: OXYCODONE HCL IR 5 MG TAB (IMMEDIATE RELEASE) PO PRN (07:35)
[2019-01-10 07:44] LABS: Hematocrit (blood only) 41.2 % (42-52); Hemoglobin 14.1 g/dL (14.0-18.0); Mean Corpuscular Hgb Conc 34.2 g/dL (32-36); Mean Corpuscular Volume 98.8 fL (80-100); Mean Platelet Volume 9.9 fL (7.4-10.4); Platelet Count 234 K/uL (130-400); RDW Coefficient of Variation 13.5 % (11.5-14.5); Red Blood Count 4.17 M/uL (4.7-6.1)
[2019-01-10 08:07] VITALS: TEMP 98.1; O2SAT 95
--- NOTE | 2019-01-10 08:15 | XRay Report ---
XR chest 1V portable CLINICAL HISTORY: lobectomy postoperative COMPARISON STUDY: 01/09/2019 FINDINGS: 6 mm left apical pneumothorax. This pleural separation is slightly improved in the prior st udy of 9 mm. Stable postoperative changes left hemithorax. Right lung remains clear. IMPRESSION: Slight decrease in size of a small left apical pneumothorax. Otherwise unchanged exam. The above report was generated using voice recognition software. It may contain grammatical, syntax or spelling errors. Electronically signed by: Sedrick Hood M.D. 01/10/2019 8:14 AM
[2019-01-10 08:19] LABS: Est GFR (Non-African American) 94.9
[2019-01-10] MEDS: ESCITALOPRAM OXALATE 10 MG TAB PO SCH (09:14)
[2019-01-10] MEDS: ENOXAPARIN INJ 40 MG/0.4 ML SYR SQ SCH (09:14)
[2019-01-10] MEDS: guaiFENesin 600 MG TABCR PO SCH (09:15)
[2019-01-10] MEDS: POLYETHYLENE (MIRALAX) 17 GM PACK PO SCH (09:15)
[2019-01-10] MEDS: DOCUSATE SODIUM 100 MG CAP PO SCH (09:15)
[2019-01-10] MEDS: STIOLTO INH SCH (09:16)
[2019-01-10] MEDS: GABAPENTIN 300 MG CAP PO SCH (09:16)
[2019-01-10] MEDS: METOPROLOL SUCC 25MG EXT REL TAB PO SCH (09:16)
[2019-01-10 09:54] VITALS: BP 148/74
--- NOTE | 2019-01-11 03:02 | Discharge Summary ---
DISCHARGE DIAGNOSES: 1. 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 2. History of cigarette smoking. 3. History of intravenous heroin abuse. 4. Atelectasis secondary to retained secretions. HOSPITAL COURSE: This is a very nice 58-year-old male who has been clean from heroin for last few years, who is a smoker and was found to have a mass in the left upper lobe, which was worked up by Dr. Toro Torres. Needle biopsy was done and was found to have an adenocarcinoma. His workup showed no evidence of spread. On 01/04/2019, the patient underwent an uncomplicated robot-assisted thoracoscopic left upper lobectomy with mediastinal lymphadenectomy. He did quite well. He had a very tiny air leak on postoperative day 2. On postoperative day 3, I removed his chest tube; however, he had atelectasis of the left side. He was walking in the hallway. He was using incentive spirometer, coughing. I was concerned. I started him on antibiotics and then on postoperative day 4, I brought him down to the Progressive Care Unit and performed a bronchoscopy and he had a large amount of mucus plugging with some old blood, which I suctioned out of his left lower lobe. This went very nicely and his x-ray improved tremendously. I kept him 1 more day on antibiotics and then postoperative day 6, his x-ray looked great. I discharged him home. He looked very good. His dressings were all off. I will see him back in the office in a week with an x-ray and then return him to the care of Dr. Torres.
== END 2019-01-10 11:00 | disposition home or self-care (01) | DRG 164 ==
LOC: ASU 10:22 → 3W 16:52